=== PATIENT | male | born 1970 | race Caucasian/White ===

== ENCOUNTER 2020-03-20 00:47 | Day surgery (SDC) | payer BC, SELFPAY ==
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
[2020-03-19 09:03] VITALS: BMI 24.4
--- NOTE | ~2020-03-20 | XR_ITS ---
EXAMINATION: XR surgery orthopedic DATE: 03/20/2020 11:37 INDICATION: ORIF right thumb fracture TECHNIQUE: 214 fluoroscopic images of the right thumb were obtained during procedure performed by Dr. Griggs. Radiologist was not present for the imaging or procedure. The amount of fluoroscopy time used during this procedure was 1.3 minutes. COMPARISON: None. FINDINGS: Oblique intra-articular fracture at the base of the right first proximal phalanx with mild displaceme nt on the wafer fab technician images. Subsequent images demonstrate reduction to essentially anatomic alignment and fixation with 2 screws. No significant fracture gap or incongruity at the articular surface. The fir st metacarpophalangeal and interphalangeal joint spaces appear normal. Expected postoperative gas in some of the surrounding soft tissues on the final images. IMPRESSION: 1. Essentially anatomic alignment post open reduction and internal fixation of an intra-articular fra cture at the base of the right first proximal phalanx. Reviewed, dictated and finalized at location A. IMPRESSION: 1. Essentially anatomic alignment post open reduction and internal fixation of an intra-articular fracture at the base of the right first proximal phalanx.
[2020-03-20 07:18] VITALS: BMI 25.1
[2020-03-20 07:30] VITALS: BP 157/98; PULSE 87; RESP 16; TEMP 36.6; O2SAT 98
[2020-03-20] MEDS: LACTATED RINGERS 1,000 ML 30 ML IV CONT ×2 (07:40→11:26)
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
--- NOTE | 2020-03-20 08:30 | SUR.PREOP ---
0825; PT AND SPOUSE NOTIFIED OF START TIME DELAY. POSSIBLY 1 HOUR
--- NOTE | 2020-03-20 08:53 | P.PNAN_ITS ---
Anes - Initial Pre Proc Eval Procedure: Operation Date: 03/20/20 09:00 Proposed Procedures p Open Reduction Internal Fixation Right Thumb Proximal Phalanx - Jorge Luis Griggs MD Date/Time: 03/20/20 08:53 Surgeon: Jorge Luis Griggs MD Pre Op Diagnosis: displaced fx right thumb proximal phalanx Patient Data Age: 49 Gender: M Height: 6 ft 1 in Weight: 86.3 kg Last Vital Signs Temp 97.8 F 03/20/20 07:30 Pulse 87 03/20/20 07:30 Resp 16 03/20/20 07:30 BP 157/98 H 03/20/20 07:30 Pulse Ox 98 03/20/20 07:30 Allergies Allergy/AdvReac Type Severity Reaction Status Date / Time No Known Allergies Allergy Verified 03/20/20 07:19 Home Medications Medication Instructions Recorded Confirmed Type amlodipine 10 mg PO DAILY 03/19/20 03/20/20 History Patient hx anesthesia problems: none Family hx anesthesia problems: none ON LICENSE OF [facility] Past Medical History Medical History (Updated 03/20/20 @ 08:49 by Emory Porras MD) Hypertension Anes - Eval Final PreProcedure Day of Procedure 03/20/20 08:53 Patient weight: normal Heart: regular rate and rhythm Lungs: clear to auscultation; No wheezes Airway: Mallampati scale class II Neurological: alert and oriented Last oral intake: >/= 8 hours ASA classification: II Emergent: no Anesthetic plan: proceed Anesthesia type and monitoring: general LMA and standard monitoring Informed Consent: The patient's anesthetic plan and its attendant risks and benefits were discussed with the patient/family/POA. Questions were solicited and answers provided to the satisfaction of the patient/family/POA.
[2020-03-20] MEDS: IBUPROFEN IV 800 MG/200 ML 800 MG/200 ML BAG 400 MG IVPB (09:14)
--- NOTE | 2020-03-20 09:23 | WPDHPUPDATE1 ---
History and Physical Update Update Date/Time: 03/20/20 09:23 History and Physical has been reviewed, including an updated exam of the patient. There are NO changes in the patient's condition. Risks, benefits, and alternatives have been discussed and questions answered. Patient agrees to proceed with procedure.
--- NOTE | 2020-03-20 09:28 | PM.OP ---
Procedure Note - Brief Procedure Note - Brief Date of procedure: 03/20/20 Pre-op diagnosis: displaced fx right thumb proximal phalanx Post-op diagnosis: same Procedure performed: ORIF fracture of right thumb proximal phalanx. Implants: Modular hand set screws: 1.5 mm x2 Anesthesia: GLMA Surgeon: Jorge Luis Griggs MD Behavioral Health Consultant: Cori Estimated blood loss (mL): 0 Tourniquet time (min): 60 Drains: No Packing: No Complications: No immediate complications Condition: stable Disposition: PACU
[2020-03-20] MEDS: ceFAZolin 2 GM/D5W 50 ML 2 GM/50 ML BAG IVPB (09:39)
[2020-03-20] MEDS: LIDO 1%/EPINEPHRINE 1:100,000 20 ML VIAL 30 ML INFILTRATE (10:15)
[2020-03-20 11:26] VITALS: BP 131/84; PULSE 91; RESP 20; TEMP 36.2; O2SAT 100
--- NOTE | 2020-03-20 11:28 | PM.PROC ---
Procedure Note - Detailed Date of procedure: 03/20/20 Pre-op diagnosis: displaced fx right thumb proximal phalanx Post-op diagnosis: other (Closed displaced fracture of the right thumb proximal phalanx) Procedure performed: Open reduction and internal fixation with two 1.5 mm cortical screws. Description of procedure: The patient's right thumb was marked in the holding area. He was taken to the operating room and placed supine on the operating table. A time-out was held and confirmed. He was given general endotracheal anesthesia. The extremity was prepped and draped in the usual fashion. The site was identified and marked for a dorsal midline incision over the proximal phalanx. This area was infiltrated with 1% lidocaine with epinephrine. A palmar intrathecal block was also placed. This anesthetic was augmented at the end of the case with 0.5% Marcaine without epinephrine. The patient received 2 g of Ancef preop. The tourniquet was inflated to 250 mmHg. The dorsal midline incision was made. The fracture was accessed from the ulnar side of the extensor tendon. The fracture was imaged with the C-arm. Fracture clot was removed the extensor venegas was incised enough that we could see the entire base of the proximal phalanx. A 0.045 inch C wire was placed into the smaller fragment as a joystick. A clamp was applied images made and the C-wire was passed and across the entire base. This provided adequate stabilization. A 1.5 mm by 9 mm lag screw was placed across the fracture in the distal half. Images revealed excellent reduction. The C-wire was removed the distal aspect of that hole was read drilled at a different angle. A 1.5 mm bicortical screw was placed through that. Excellent reduction was visualized on the C-arm image. Length of screws were satisfactory. The wound was irrigated and the extensor venegas repaired with odwilb-ne-oholb 4-0 Vicryl sutures the skin was closed with a running 5 0 nylon. A soft bulky bandage with Coban wrap was applied to the thumb. He is being discharged home with instructions in wound care and follow-up and will have a prescription for hydrocodone . There were no complications. Total tourniquet time was 60 minutes. Surgeon: Jorge Luis Griggs MD
[2020-03-20 11:40] VITALS: BP 130/84; PULSE 72; RESP 18; O2SAT 100
[2020-03-20 11:55] VITALS: BP 128/86; PULSE 79; RESP 12; O2SAT 94
[2020-03-20 12:03] VITALS: BP 135/89; PULSE 86; RESP 12
[2020-03-20 12:30] VITALS: BP 140/78; PULSE 82; RESP 14
== END 2020-03-20 12:33 | disposition home or self-care (01) ==
PROVIDERS: Visit Provider Plastic Surgery
PROC: (CPT 26735; principal; 2020-03-20 09:00)
DX: S62.511A Displaced fracture of proximal phalanx of right thumb, initial encounter for closed fracture (principal); V18.4XXA Pedal cycle driver injured in noncollision transport accident in traffic accident, initial encounter; I10 Essential (primary) hypertension
CPT/HCPCS: 26735; A9270; C1713; J0690; J1100; J1741; J2250; J2405; J2704; J3010; J7120

== ENCOUNTER 2025-05-08 13:18 | Emergency (ER) | payer SELFPAY ==
[2025-05-08 13:24] VITALS: BP 163/105; PULSE 99; RESP 18; TEMP 36.6; O2SAT 100
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
== END 2025-05-08 14:17 | disposition home or self-care (01) ==
PROVIDERS: Emergency Provider Nurse Practitioner
DX: S00.83XA Contusion of other part of head, initial encounter (principal); S51.801A Unspecified open wound of right forearm, initial encounter; S60.512A Abrasion of left hand, initial encounter; S60.511A Abrasion of right hand, initial encounter; V18.4XXA Pedal cycle driver injured in noncollision transport accident in traffic accident, initial encounter; Y93.55 Activity, bike riding; I10 Essential (primary) hypertension
CPT/HCPCS: 99212; G0463

== ENCOUNTER 2025-05-26 17:09 | Emergency (ER) | payer BC, SELFPAY ==
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
[2025-05-26 17:22] VITALS: BP 171/102; PULSE 100; RESP 18; TEMP 37.2; O2SAT 100
== END 2025-05-26 17:30 | disposition home or self-care (01) ==
PROVIDERS: Emergency Provider Nurse Practitioner
DX: H66.93 Otitis media, unspecified, bilateral (principal); I10 Essential (primary) hypertension
CPT/HCPCS: 99213; G0463

== ENCOUNTER 2025-07-10 12:30 | Outpatient (CLI) | payer BC, SELFPAY ==
--- OUTSIDE RECORDS SUMMARY | 2025-06-10 16:31 | XMS_ITS | Encounter Summary ---
Author Organization [facility] Health Address [address] [place] [address] Care Team Providers Care Support Manager Name Role Phone Gadiel Torres MD Primary Care Provider [phone] Encounter Details Date Type Department Care Team (Late st Contact Info) Description 05/14/2022 Ophth Exam [facility] [address] [place] [address] Mark Ramos , DO [address] [place] [address] Social History Tobacco Use Types Packs/Day Years Used Date Smoking Tobacco: Never Smokeless Tobacco: Never Alcohol Use Standard Drinks/Week Comments Yes 0 (1 standard drink = 0.6 oz pur e alcohol) 3 drinks per day Sex and Gender Information Value Date Recorded Sex Assigned at Not on file Legal Sex Male 11:02 AM CDT Gender Identity Not on file Sexual Orientation Not on file documented as of this encounter Plan of Treatment Not on file documented as of this encounter Visit Diagnoses Not on filedocumented in this encounter Care Teams Support Manager Relationship Specialty Start Date End Date Gadiel Torres MD PCP - General Internal Medicine 05/14/22 documented as of this encounter
--- OUTSIDE RECORDS SUMMARY | 2025-06-10 16:31 | XMS_ITS | Clinical Summary ---
Author Organization [facility] [employer] Address [address] [facility] [place] [address] Care Team Providers Care Hose Inspector And Patcher Name Role Phone Gadiel Torres MD Primary Care Provider [phone] Source Comments [facility] [employer],non-owned Affiliates and Associated Physician Practices is amultiple site organization consisting of ambulatory clinics and hospital sitesin [place], [place], [place] and [place]. This disclosure is being madepursuant to the Care Everywhere program and may not contain all information available regarding this patient. Last updated 18.[facility] [employer] Allergies No known active allergies Medications * Be aware that medications may not be up to date on this document. Alwaysverify current medications with the patient. bacitracin ointment Apply to affected area 3 times daily 30 g 05/14/2022 Active Immunizations Immunization Administration Dates Next Due TDAP (7yrs+) 05/14/2022 Social History Tobacco Use Types Packs/Day Years [...] on file Sexual Orientation Not on file Last Filed Vital Signs Vital Sign Reading Time Taken Comments Blood Pressure 168/114 05/14/2022 6:24 PM CDT Pulse 103 05/14/2022 6:04 PM CDT Temperature 37.6 C (99.7 F) 05/14/2022 11:14 AM CDT Respiratory Rate 29 05/14/2022 6:04 PM CDT Oxygen Saturation 97% 05/14/2022 6:04 PM CDT Inhaled Oxygen Concentration - - Weight 86.2 kg (190 lb) 05/14/2022 11:13 AM CDT Height 188 cm (6' 2) 05/14/2022 11:13 AM CDT Body Mass Index 24.39 05/14/2022 11:13 AM CDT Plan of Treatment Health Maintenance Due Date Last Done Comments COLOGUARD (AGES 45-75) - COL ON CA SCREENING 1968 COLON MONITORING 1968 COLONOSCOPY - COLON CA SCREENING 1968 CT COLONOGRAPHY - COLON CA SCREENING 1968 Colorectal Cancer Screening 1968 FIT - COLON CA SCREENING 1968 FLEX SIG - COLON CA SCREENING 1968 HIV SCREENING 1983 HEPATITIS C SCREENING 06/18/1986 HEPATITIS B VACCINE (1 of 3 - 19+ 3-dose series) 1987 PNEUMOCOCCAL VACCINE 50+ (1 of 1 - PCV) 2018 ZOSTER VACCINE (1 of 2) 2018 COVID-19 VACCINE (3 - 2023-2 5 season) 2024 02/26/2021, 01/29/2021 DEPRESSION SCREENING 11/27/2024 INFLUENZA VACCINE (#1) 2025 01/19/2021 LIPID TESTING 04/11/2027 04/11/2022 DTAP/TDAP/TD VACCINES (2 - T d or Tdap) 05/14/2032 05/14/2022 HIB VACCINE Aged Out No longer eligi ble based on patient's age to complete this topic HPV VACCINE Aged Out No longer eligi ble based on patient's age to complete this topic MENINGOCOCCAL (Group B) VACCINE SHARED DECISION-MAKING Aged Out No longer eligible based on patient's age to complete this topic MENINGOCOCCAL GROUPS A/C/Y/W VACCINE Aged Out No longer eligible b ased on patient's age to complete this topic Insurance PRASHANTH ANTHEM Care Teams Hose Inspector And Patcher Relationship Specialty Start Date End Date Gadiel Torres MD PCP - General Internal Medicine 05/14/22
--- NOTE | ~2025-07-10 | CT_ITS ---
Non-contrast Head CT History: Concussion Technique: Axial non-contrast imaging of the brain was performed. Dose reduction technique was used on this scan by utilizing automated exposure control and iterative reconstruction technique. The dose -length product (DLP) was 605.33 mGy-cm. Findings: There is no evidence of intracranial hemorrhage, mass lesion, or acute infarct. Brain par enchyma appears normal. The ventricles and subarachnoid spaces are normal in size. The calvarium ap pears normal. The visualized paranasal sinuses and mastoid air cells are clear. Impression: No significant abnormality seen. Reviewed, dictated and finalized at location . Impression: No significant abnormality seen.
--- OUTSIDE RECORDS SUMMARY | 2025-07-10 12:32 | XMS_ITS | Clinical Summary ---
Author Organization [facility] [employer] Address [address] [facility] [place] [address] Care Team Providers Care School Library Media Specialist Name Role Phone Gadiel Torres MD Primary Care Provider [phone] Source Comments [facility] [employer],non-owned Affiliates and Associated Physician Practices is amultiple site organization consisting of ambulatory clinics and hospital sitesin [place], [place], [place] and [place]. This disclosure is being madepursuant to the Care Everywhere program and may not contain all information available regarding this patient. Last updated 18.[facility] [employer] Allergies No known active allergies Medications * [...] this topic Insurance PRASHANTH ANTHEM Care Teams School Library Media Specialist Relationship Specialty Start Date End Date Gadiel Torres MD PCP - General Internal Medicine 05/14/22
--- OUTSIDE RECORDS SUMMARY | 2025-07-10 12:32 | XMS_ITS | Encounter Summary ---
Author Organization [facility] Address [address] [facility] [place] [address] Care Team Providers Care Road Equipment Operator Name Role Phone Gadiel Torres MD Primary Care Provider [phone] Encounter Details Date Type Department Care Team (Late st Contact Info) Description 05/14/2022 Ophth Exam [facility] [address] [place] [address] Mark Ramos , DO [address] [place] [address] Social History Tobacco Use Types Packs/Day Years [...] on filedocumented in this encounter Care Teams Road Equipment Operator Relationship Specialty Start Date End Date Gadiel Torres MD PCP - General Internal Medicine 05/14/22 documented as of this encounter
== END 2025-07-10 12:31 | disposition home or self-care (01) ==
PROVIDERS: PCP Family Medicine
DX: S06.0X0D Concussion without loss of consciousness, subsequent encounter (principal); X58.XXXD Exposure to other specified factors, subsequent encounter
CPT/HCPCS: 70450

== ENCOUNTER 2025-09-02 16:16 | Emergency (ER) | payer BC, SELFPAY ==
--- OUTSIDE RECORDS SUMMARY | 2025-09-01 10:45 | XMS_ITS ---
Author Organization [facility] [employer] Address [address] [facility] [address] [place] [address] Care Team Providers Care Education Trainer Name Role Phone Kelly Henriquez Unavailable [phone] Mark Murray Unavailable [phone] REASON FOR VISIT 2 week f/u Social History Sex Assigned At : Social History Observation Description Sex Assigned At Male Encounters Encounter Location Date Provider Diagnosis [facility] [employer] [facility], [place] [address] [facility] [address] [place] [address] 09/01/2025 Mark Murray Plan Of Treatment No Information Progress Notes * Sherman SALDIVARDOB:1970 (55 yo M)Acc No.[id number]:09/01/2025 Patient: Sherman Yip Provider: CORETTA Black :1970 A ge:55 Y S ex:Male Date:09/01/2025 Phone: Address:[address] [place] [id number] Subjective: * Chief Complaints: * 2 week f/u * HPI: T ransition of Care: 08/18/2025 BDI: 25 NANCY-7: 10, PHQ-9: 15 depressed since of his father in april. PCP placed on sertraline 50 mg in May increased to 100 mg last month. - increase sertraline to 150 mg daily - start Buproprion 150 mg daily - discussed lithium - continue therapy. Billing Information: * Procedure Codes: * Electronic signature of CORETTA Ramirez on 09/02/2025 at 04:52 PM CDT Sign off status: Pending * Provider: CORETTA Black Date: Generated for Crow hayes/Faxing/eTransmitting on: 1 04:52 PM CDT
[2025-09-02] VITALS (7 sets, daily range): BP systolic 130–144; BP diastolic 82–91; PULSE 65–70; RESP 14–27; TEMP 36.8; O2SAT 98–100
--- NOTE | ~2025-09-02 | XR_ITS ---
EXAMINATION: XR chest 2V, 09/02/2025 16:45 CDT HISTORY: CP/SOB/PALPITATIONS COMPARISON: No comparisons available. Technique: 2 views obtained. Findings: The lungs are clear, no effusion. No pneumothorax. Heart is normal size. Mediastinal and hilar contours are within normal limits. Bony thorax no acute abnormality. Impression: No acute cardiopulmonary abnormality. Reviewed, dictated and finalized at location P. Impression: No acute cardiopulmonary abnormality.
--- NOTE | 2025-09-02 16:27 | ECG_ITS ---
Test Date: 2025-09-02 16:26:13 Measurements Intervals [place] Rate: 63 P: 67 HI: 179 QRS: 59 QRSD: 89 T: 22 QT: 395 QTc: 407 Interpretive Statements SINUS RHYTHM LEFT ATRIAL ENLARGEMENT INCOMPLETE RIGHT BUNDLE BRANCH BLOCK MINIMAL Q WAVES- INFERIOR LEADS BORDERLINE ECG No previous ECG available for comparison Electronically Signed On 09-02-2025 18:55:01 CDT by Reinaldo Martinez D.O.
--- OUTSIDE RECORDS SUMMARY | 2025-09-02 16:41 | XMS_ITS | Encounter Summary ---
Author Organization [facility] Address [address] [place] [address] Care Team Providers Care Door Builder Name Role Phone Gabriel Mak MD Primary Care Provider Reason for Visit * Reason Onset Date Comments Shortness of Breath 09/02/2025 Chest Pain 09/02/2025 Encounter Details Date Type Department Care Team (Late st Contact Info) Description 09/02/2025 Nurse Triage [facility] Primary Care at [address] [address] Gabriel Mak MD [address] [place] [address] [address] [place] [address] Social History Tobacco Use Types Packs/Day Years Used Date Smoking Tobacco: Never Smokeless Tobacco: Never PHQ-2 Answer Date Recorded PHQ-2 Total Score (If total score is 3 or more points, staff should administer the PHQ-9) 6 08/21/2025 PHQ-9 Answer Date Recorded PHQ-9 Total Score 19 08/21/2025 Sex and Gender Information Value Date Recorded Sex Assigned at Not on file Legal Sex Male 10:47 AM CDT Gender Identity Not on file Sexual Orientation Not on file documented as of this encounter Miscellaneous Notes * Telephone Encounter - Mariam Dobbins RN - 09/02/2025 2:17 PM CDT Reason for Conversation Shortness of Breath and Chest Pain Background Grgeory Yariel called about sob and insomnia in the last 2 nights. Pt is sob when lying down, causinghim to stay up. Barely slept last night. Feels like his heart rate is up, feels like heart is pounding faster. Sometimes this wakes him up. Has had a couple of episodes of chest pain that also started about 2 days ago. Had an episode this afternoon which last about 30 minutes. Chest pain was mid chest at a level of 3-4/10. Pt was sob with the pain. It did not radiate No current chest pain. Pt does not want to go to the ED. Provider contacted via secure chat for ED disposition consult. Recommendation from provider:No response/sent to ED. Advised evaluation at the ED. Pt states he is unsure he w ill go, pt states he called to just discuss recent med changes and current symptoms. Discussed thatred flags like chest pain and sob need to be evaluated and discussed dangers/potentially life threatening issues with delaying care. Pt states he will discuss this with his spouse. Tasking message tothe office. Advised pt to call back if symptoms worsen or with any other concerns/questions. Pt verbalized understanding. Disposition Go to ED/UCC Now (or to Office With PCP Approval) Reason for Disposition Chest pain lasting longer than 5 minutes and occurred in last 3 days (72 hours) (Exception: Feels exactly the same as previously diagnosed heartburn and has accompanying sour taste in mouth.) Protocols Used Chest Mjya-Dlfke-CO documented in this encounter Plan of Treatment Not on file documented as of this encounter Visit Diagnoses Not on filedocumented in this encounter Care Teams Door Builder Relationship Specialty Start Date End Date Gabriel Mak MD [address] [place] [address] [address] [place] [address] PCP - General Family Medicine 08/21/25 documented as of this encounter
--- OUTSIDE RECORDS SUMMARY | 2025-09-02 16:41 | XMS_ITS | Clinical Summary ---
Author Organization [facility] Address [address] [place] [address] Care Team Providers Care Urban Forester Name Role Phone Gadiel Torres MD Primary Care Provider [phone] Source Comments [facility],non-owned Affiliates and Associated Physician Practices is amultiple site organization consisting of ambulatory clinics and hospital sitesin [place], [place], [place] and [place]. This disclosure is being madepursuant to the Care Everywhere program and may not contain all information available regarding this patient. Last updated 18.[facility] Allergies No known active allergies Medications * Be aware that medications may not be up to date on this document. Alwaysverify current medications with the patient. bacitracin ointment Apply to affected area 3 times daily 30 g 05/14/2022 Active Encounters Date Type Department Care Team Description 07/29/2025 4:01 PM CDT - 07/29/2025 11:59 PM CDT Hospital Encounter [facility] Imaging Services - [address] [address] Discharge Disposition: Home or Self Care from Last 3 Months Immunizations Immunization Administration Dates Next Due TDAP [...] FLEX SIG - COLON CA SCREENING 1968 LIPID TESTING 1968 HIV SCREENING 1983 HEPATITIS C SCREENING 06/18/1986 HEPATITIS B VACCINE (1 of 3 - 19+ 3-dose series) 1987 PNEUMOCOCCAL VACCINE 50+ (1 of 1 - PCV) 2018 ZOSTER VACCINE (1 of 2) 2018 DEPRESSION SCREENING 11/27/2024 COVID-19 VACCINE (1 - 2023-2 5 season) 2025 INFLUENZA VACCINE (#1) 2025 DTAP/TDAP/TD VACCINES (2 - T d or Tdap) 05/14/2032 05/14/2022 HIB VACCINE Aged Out No longer eligi ble based on patient's age to complete this topic HPV VACCINE Aged Out No longer eligi ble based on patient's age to complete this topic MENINGOCOCCAL (Group B) VACC INE SHARED DECISION-MAKING Aged Out No longer eligibl e based on patient's age to complete this topic MENINGOCOCCAL GROUPS A/C/Y/W VACCINE Aged Out No longer eligible b ased on patient's age to complete this topic Procedures Procedure Name Priority Date/Time Associated Diagnosis Comments MRI BRAIN WO CONTRAST Routine 07/29/2025 5:38 PM CDT Confusion from Last 3 Months Results * MRI BRAIN NON CONTRAST (07/29/2025 5:38 PM CDT) Anatomical Region Laterality Modality Head Magnetic Resonan ce 07/29/2025 6:15 PM CDT Impressions 07/30/2025 3:54 PM CDT IMPRESSION: No acute infarct. Nonspecific minimal periventricular white matter hyperintensity, could be related to chronic small vessel ischemic disease. Edited by Cathy Steve on 07/30/2025 8:29 AM > Interpreting Provider: Spring Schulte MD on 07/30/2025 3:54 PM Narrative 07/30/2025 3:54 PM CDT PROCEDURE: MRI BRAIN WO CONTRAST, DATE/TIME OF EXAM: 07/29/2025 5:38 PM, LOCATION [facility] INDICATION: R41.0: Confusion. COMPARISON: None. TECHNIQUE: MRI of the brain was performed without contrast. FINDINGS: Minimal nonspecific periventricular white matter hyperintensity. Brain parenchymal signal intensity is otherwise normal. Sheth-white matter differentiation is normal. No diffusion restriction to suggest acute infarct is seen. No evidence of hemorrhage is seen on gradient sequence. The ventricular system is normal in size and configuration. Midline structures are not displaced. No mass or mass effect is seen. Vascular flow-voids are normal. The paranasal sinuses and mastoid air cells are aerated. The calvarium has normal marrow signal intensity. Procedure Note Spring Schulte MD - 07/30/2025 PROCEDURE: MRI BRAIN WO CONTRAST, DATE/TIME OF EXAM: 07/29/2025 5:38 PM, LOCATION [facility] INDICATION: R41.0: Confusion. COMPARISON: None. TECHNIQUE: MRI of the brain was performed without contrast. FINDINGS: Minimal nonspecific periventricular white matter hyperintensity. Brain parenchymal signal intensity is otherwise normal. Sheth-white matter differentiation is normal. No diffusion restriction to suggest acute infarct is seen. No evidence of hemorrhage is seen on gradient sequence. The ventricular system is normal in size and configuration. Midline structures are not displaced. No mass or mass effect is seen. Vascular flow-voids are normal. The paranasal sinuses and mastoid aircells are aerated. The calvarium has normal marrow signal intensity. IMPRESSION: No acute infarct. Nonspecific minimal periventricular white matter hyperintensity, could be related to chronic small vessel ischemicdisease. Edited by Cathy Steve on 07/30/2025 8:29 AM > Interpreting Provider: Spring Schulte MD on 07/30/2025 3:54 PM Jerilyn Camacho MD MR ORDERABLES Final Result from Last 3 Months Insurance ANTHEM ANTHEM ANTHEM Care Teams Urban Forester Relationship Specialty Start Date End Date Rice, Gadiel H, MD PCP - General Internal Medicine 05/14/22
--- OUTSIDE RECORDS SUMMARY | 2025-09-02 16:41 | XMS_ITS | Encounter Summary ---
Author Organization [facility] Address [address] [place] [address] Care Team Providers Care Web Graphic Designer Name Role Phone Gabriel Mak MD Primary Care Provider Reason for Visit * Reason Onset Date Comments Shortness of Breath 09/02/2025 Medication Problem 09/02/2025 Encounter Details Date Type Department Care Team (Late st Contact Info) Description 09/02/2025 Nurse Triage [facility] Primary Care at [address] [address] Rowena Conteh, RN Social History Tobacco Use Types Packs/Day Years [...] encounter Miscellaneous Notes * Telephone Encounter - Rowena Conteh RN - 09/02/2025 2:11 PM CDT Access Center Nurse Triage: Reason for Conversation Shortness of Breath and Medication Problem Background CRISTI 08/21/25 cc: shortness of breath and insomnia From the INTERNAL RECRUITER, Patient started Valsartan 2 days ago and states last night while laying down he noticed he was becoming more SOB which caused him to stay up. Today patient says he feels a little better when he is up and walking around but once he sits or lays down he becomes short of breath. I called the patient twice. Each time I left a voicemail message requesting a return call. Will forward to Gabriel Mak MD clinical team to follow up with the patient as these are red flagsymptoms. Disposition No Contact Calls Reason for Disposition Second attempt to contact caller AND no contact made. Phone number verified. Protocols Used No Contact or Duplicate Contact Dnhy-Qvluz-DU * Telephone Encounter - Rowena Conteh RN - 09/02/2025 2:01 PM CDT Regarding: SOB/Insomnia ----- Message from Seven Chen sent at 09/02/2025 1:59 PM CDT ----- Symptom Based Call Chief Complaint(s): SOB/Insomnia Duration: Started Last Night (09/01/25) What type of symptom(s) is the patient experiencing? Red Flag. Is the patient concerned they are experiencing a medical emergency requiring an ambulance? No Additional Comments: Patient started Valsartan 2 days ago and states last night while laying down he noticed he was becoming more SOB which caused him to stay up. Today patient says he feels a littlebetter when he is up and walking around but once he sits or lays down he becomes short of breath. Patient denies additional symptoms at time of the call and is seeking clinical advice. Does message need to be routed? Yes-Action Needed documented in this encounter Plan of Treatment Not on file documented as of this encounter Visit Diagnoses Not on filedocumented in this encounter Care Teams Web Graphic Designer Relationship Specialty Start Date End Date Gabriel Mak MD [address] [facility] [address] [place] [address] PCP - General Family Medicine 08/21/25 documented as of this encounter
--- OUTSIDE RECORDS SUMMARY | 2025-09-02 16:41 | XMS_ITS | Encounter Summary ---
Author Organization [facility] Address [address] [place] [address] Care Team Providers Care Extractions Technician Name Role Phone Gabriel Mak MD Primary Care Provider Reason for Visit * Reason Onset Date Comments Med Refill 08/25/2025 Encounter Details Date Type Department Care Team (Late st Contact Info) Description 08/25/2025 Telephone [facility] Primary Care at [address] [address] Gabriel Mak MD [address] [place] [address] [address] [place] [address] Med Refill Social History Tobacco Use Types Packs/Day Years [...] on file documented as of this encounter Ordered Prescriptions Prescription Sig Dispense Quantity Refills Last Filled Start Date End Date valsartan (DIOVAN) 160 mg tabletIndications:H ypertension, essential Take 1 tablet (160 mg total) by mouth daily 90 tablet 08/29/2025 documented in this encounter Miscellaneous Notes * Telephone Encounter - Maki Oliveira MA - 09/02/2025 10:[address] Mak ok to increase metoprolol back to 50 mg. * Addendum Note - Maki Oliveira MA - 08/29/2025 2:40 PM CDTAddended by: MAKI OLIVEIRA on: 08/29/2025 02:40 PM Modules accepted: Orders * Telephone Encounter - Maki Oliveira MA - 08/29/2025 2:39 PM CDT Talked with pt notified him of recommended medication change. Pt stated understanding. He said his pulse has been in the 90s and would like to know if he can go back to the increased dose on the metoprolol 50 mg. He feels better when his pulse is in the 70s and it was on the 50 mg dose. * Telephone Encounter - Maki Oliveira MA - 08/29/2025 2:[address] Mak send in valsartan 160 mg and see if pt has same reaction. Medication sent. * Telephone Encounter - Evelyn Kuhn - 08/29/2025 2:14 PM CDT Call Back Caller???s Concern: Patient checking status, I let them know that the message was sent to Dr Mak late yesterday and they would take care of as soon as they can. Does message need to be routed? No * Telephone Encounter - Maki Oliveira MA - 08/28/2025 2:43 PM CDT Talked with pt. He took the amlodipine-valsartan and felt off, jittery, elevated heart rate. He would like to see if he can go back to just the beta mercedes or something that works similar. He also has tremors which the beta mercedes helps. * Telephone Encounter - Maria Luz Whitt - 08/28/2025 10:45 AM CDT Call Back Caller???s Concern: The patient is calling back with additional questions for Maki Attempted to warm transferred to the backline to speak to Maki but no answer. Sending High Priority Does message need to be routed? Yes-Action Needed * Telephone Encounter - Erma Hodges - 08/27/2025 3:52 PM CDT Call Back Caller???s Concern: patient returned call to center with follow up questions, watch commander warm transfer to the backline Does message need to be routed? No * Telephone Encounter - Maki Oliveira MA - 08/27/2025 2:46 PM CDT Talked with pt and notified him of recommendation. He said he has tried the amlodipine in the past and was seen in the ED for high heart rate. They never confirmed it was the amlodipine. Pt said he is going to try it at the whole tab and let us know if he has any issues * Telephone Encounter - Evelyn Levy - 08/27/2025 2:42 PM CDT Call Back Caller???s Concern: Warm transferred patient to practice regarding call back for amlodipine. Does message need to be routed? No * Telephone Encounter - Maki Oliveira MA - 08/27/2025 2:36 PM CDT Is pt having rapid heart rate on medication or has he not started medication. If pt is taking and having rapid heart rate Dr. Mak recommends trying half dose of amlodipine-valsartin to see if sx improve. LMOM For pt to call office. * Telephone Encounter - Jalyn Alberto - 08/25/2025 1:46 PM CDT Medication Question/Clarification Medication Name(s)/Dose: metoprolol XL (TOPROL-XL) 25 mg extended release tablet and amlodipine-valsartan (EXFORGE) 5-160 mg per tablet What is the question or clarification needed? Patient is calling stating he don't want to take the amlodipine-valsartan (EXFORGE) 5-160 mg per tablet because of the rapid heart beat. Patient states he want to continue taking the metoprolol XL (TOPROL-XL) 25 mg extended release tablet. If needed, Pharmacy(s) medication(s) should be sent to: Pharmacy on file Additional Comments: None Does message need to be routed? Yes-Action Needed documented in this encounter Plan of Treatment Not on file documented as of this encounter Visit Diagnoses Diagnosis Hypertension, essential- Primary Unspecified essential hypertension documented in this encounter Discontinued Medications Medication Sig Discontinue Reason Start Date End Da te amlodipine-valsartan (EXFORGE) 5-160 mg per tabletIndications:Hypert ension, essential Take 1 tablet by mouth daily Alternate therapy 08/21/2025 08/29/2025 documented as of this encounter Care Teams Extractions Technician Relationship Specialty Start Date End Date Gabriel Mak MD [address] [address] PCP - General Family Medicine 9/25/25 documented as of this encounter
--- OUTSIDE RECORDS SUMMARY | 2025-09-02 16:41 | XMS_ITS | Clinical Summary ---
Author Organization [facility] [place] Address [address] [place] [address] [address] [place] [address] Care Team Providers Care Tire Balancer Name Role Phone Gabriel Mak MD Primary Care Provider Allergies No known active allergies Medications sertraline (ZOLOFT) 100 mg tablet Take 1 tablet (100 mg total) by mouth daily 07/11/20 25 Active sertraline (ZOLOFT) 50 mg tablet Take 1 tablet (50 mg total) by mouth daily 06/26/20 25 Active buPROPion XL (WELLBUTRIN XL) 150 mg 24 hr tablet Take 1 tablet (150 mg total) by mouth daily Active metoprolol XL (TOPROL-XL) 25 mg extended release tabletIndicati ons:Hypertensi on, essential Take 1 tablet (25 mg total) by mouth daily 90 tablet 1 08/21/20 25 026 Active valsartan (DIOVAN) 160 mg tabletIndicati ons:Hypertensi on, essential Take 1 tablet (160 mg total) by mouth daily 90 tablet 08/29/20 25 Active metoprolol XL (TOPROL-XL) 50 mg extended release tablet Take 1 tablet (50 mg total) by mouth daily 06/04/20 25 025 Discontinued traZODone (DESYREL) 50 mg tablet TAKE 1 TABLET BY MOUTH EVERY DAY AT BEDTIME AFTER MEAL 06/04/20 25 025 Discontinued( erapy completed) mupirocin (BACTROBAN) 2 % ointmentIndica tions:Local skin infection Apply topically 3 (three) times a day 22 g 09/18 025 Discontinued(Th erapy completed) doxycycline (VIBRAMYCIN) 100 mg capsuleIndicat ions:Local skin infection Take 1 tablet/capsul e (100 mg total) by mouth 2 (two) times a day for 10 days 20 tablet/caps ule 08/14/20 025 Discontinued(Th erapy completed) amlodipine-christophe sartan (EXFORGE) 5-160 mg per tabletIndicati ons:Hypertensi on, essential Take 1 tablet by mouth daily 90 tablet 1 08/21/20 025 Discontinued(Al ternate therapy) Active Problems Problem Noted Date Diagnosed Date Chronic constipation 08/21/2025 Assessment & Plan (08/21/2025 11:55 AM CDT): Chronic constipation for many years with ineffective relief from stool softeners. Reports irregular bowel movements. Discuss more on future visit Nocturia 08/21/2025 Assessment & Plan (08/21/2025 11:55 AM CDT): Nocturia with urination 4-5 times per night. Reports frequent urination. Check PSA, order placed Discuss more on future visit Unintentional weight loss of more than 10% body weight within 6 months 08/21/2025 Assessment & Plan (08/21/2025 11:55 AM CDT): Unintentional weight loss Unintentional weight loss of approximately 23 pounds over three months, with no change in appetite, nausea, or vomiting. Reports constipation and frequent urination. Recent colonoscopy in 2019 showed no polyps. 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 Improvement expected with better control of anxiety and depression. - Address underlying anxiety and depression to reduce skin picking Hypertension, essential 08/21/2025 Assessment & Plan (08/21/2025 11:55 AM CDT): BP Readings from Last 3 Encounters: 08/21/25 152/94 08/14/25 (!) 174/100 Essential hypertension, uncontrolled Uncontrolled essential hypertension with recent readings of 174/100 and 152/94. Current metoprolol 50 mg daily is ineffective. Beta blockers may exacerbate depression and are not ideal for blood pressure management. - Reduce metoprolol XL to 25 mg daily - Start a new antihypertensive medication - Amlodipine-Valsartan 5-160 mg daily - Send prescriptions to [facility] and [facility] - follow up in 1 months, monitor BP at home Orders: amlodipine-valsartan (EXFORGE) 5-160 mg per tablet; Take 1 tablet by mouth daily metoprolol XL (TOPROL-XL) 25 mg extended release tablet; Take 1 tablet (25 mg total) by mouth daily Comprehensive metabolic panel; Future Lipid panel; Future CBC without differential; Future Moderate episode of recurrent major depressive d isorder 08/21/2025 Assessment & Plan (08/21/2025 11:55 AM CDT): Major depressive disorder and anxiety disorder Exacerbation of major depressive disorder and anxiety disorder. Depression is worsening, and anxiety is coexisting. Current sertraline regimen is ineffective. Wellbutrin was recently added by a psychiatrist. No suicidal ideation reported. - Continue sertraline and Wellbutrin as prescribed by psychiatrist - Follow up with psychiatrist in two weeks Orders: Comprehensive metabolic panel; Future Thyroid Function [place]; Future Testosterone, Total and Free, Serum; Future NANCY (generalized anxiety disorder) 08/21/2025 Assessment & Plan (08/21/2025 11:55 AM CDT): Major depressive disorder and anxiety disorder Exacerbation of major depressive disorder and anxiety disorder. Depression is worsening, and anxiety is coexisting. Current sertraline regimen is ineffective. Wellbutrin was recently added by a psychiatrist. No suicidal ideation reported. - Continue sertraline and Wellbutrin as prescribed by psychiatrist - Follow up with psychiatrist in two weeks Orders: Comprehensive metabolic panel; Future Thyroid Function [place]; Future Encounters Date Type Department Care Team Description 09/02/2025 Nurse Triage [facility] Primary Care at [address] [phone] Gabriel Mak MD 09/02/2025 Nurse Triage [facility] Primary Care at [address] [phone] Rowena Conteh RN 08/25/2025 Telephone [facility] Primary Care at [address] [phone] Gabriel Mak MD Med Refill 08/21/2025 9:00 AM CDT Office Visit [facility] Primary Care at [address] [phone] Gabriel Mak MD Preventative health care (Primary Dx); Hypertension, essential; NANCY (generalized anxiety disorder); Moderate episode of recurrent major depressive disorder (HCC); Skin excoriation; Screening for diabetes mellitus; Screening for lipid disorders; Unintentional weight loss of more than 10% body weight within 6 months; Chronic constipation; Nocturia; Pain, dental; Need for hepatitis B screening test; Prostate cancer screening; Encounter for hepatitis C screening test for low risk patient 08/14/2025 2:15 PM CDT Office Visit [facility] at [address] [phone] Malka Min NP Local skin infection (Primary Dx); Elevated blood pressure reading from Last 3 Months Immunizations Immunization Administration Dates Next Due Influenza, Unspecified 08/21/2025(Deferr ed: Patient Refused),11/27/2024(Deferred: Patient Refused) Tdap 05/14/2022 Surgical History Surgery Date Site/Laterality Comments THUMB SURGERY Right Family History Medical History Relation Name Comments Anxiety disorder Father Depression Father Heart failure Father No Known Problems Mother Multiple sclerosis Sister Relation Name Status Comments Father Mother Alive Sister Alive Social History Tobacco Use Types Packs/Day Years Used Date Smoking Tobacco: Never Smokeless Tobacco: Never Tobacco Cessation:Counseling Given: Not Answered PHQ-2 Answer Date Recorded PHQ-2 Total Score (If total score is 3 or more points, staff should administer the PHQ-9) 6 08/21/2025 PHQ-9 Answer Date Recorded PHQ-9 Total Score 19 08/21/2025 Sex and Gender Information Value Date Recorded Sex Assigned at Not on file Legal Sex Male 10:47 AM CDT Gender Identity Not on file Sexual Orientation Not on file Obstetrics History Last Filed Vital Signs Vital Sign Reading Time Taken Comments Blood Pressure 152/94 08/21/2025 9:21 AM CDT Pulse 78 08/21/2025 9:21 AM CDT Temperature 36.8 C (98.2 F) 08/21/2025 9:21 AM CDT Respiratory Rate 18 08/14/2025 1:53 PM CDT Oxygen Saturation 98% 08/21/2025 9:21 AM CDT Inhaled Oxygen Concentration - - Weight 74 kg (163 lb 3.2 oz) 08/21/2025 9:21 AM CDT Height 182.9 cm (6') 08/21/2025 9:21 AM CDT Body Mass Index 22.13 08/21/2025 9:21 AM CDT Plan of Treatment Health Maintenance Due Date Last Done Comments Hepatitis C Screening 1968 Prostate Cancer Screening-PSA 1968 Hepatitis B Screening 1986 Zoster Vaccine (1 of 2) 2018 Influenza Vaccine (#1) 2025 Colon Cancer Screening-Colonoscopy 10/21/2025 Postponed from (Patient declined, but will receive in the future) Depression Screening 08/21/2026 08/21/2025, 08/21/2025 Regular Well Visit/Exam 18-64 08/21/2026 08/21/2025 DTaP/Tdap/Td Vaccine (2 - Td or Tdap) 05/14/2032 05/14/2022 Pneumococcal vaccine <65 Aged Out No longer eligible based on patient's age to complete this topic Insurance Outsell OOS Member Subscriber Plan / Payer (Ef fective 2024-Present) Name:Gregory Saldivar Relation to Subscriber:Self Name:Gregory Saldivar Payer ID:[id number] (NAIC) Type:[employer] Address: [facility] [id number] [id number] Care Teams Tire Balancer Relationship Specialty Start Date End Date Gabriel Mak MD [address] [facility] [address] [place], [place] [id number] PCP - General Family Medicine 08/21/25
--- OUTSIDE RECORDS SUMMARY | 2025-09-02 16:41 | XMS_ITS | Encounter Summary ---
Author Organization [facility] Address [address] [place] [address] Care Team Providers Care High School Counselor Name Role Phone Gadiel Torres MD Primary Care Provider [phone] Encounter Details Date Type Department Care Team (Late st Contact Info) Description 05/14/2022 Ophth Exam [facility] [address] [place] [phone] Mark Ramos , DO [address] [place] [address] Social History Tobacco Use Types Packs/Day Years [...] on filedocumented in this encounter Care Teams High School Counselor Relationship Specialty Start Date End Date Gadiel Torres MD PCP - General Internal Medicine 05/14/22 documented as of this encounter
--- OUTSIDE RECORDS SUMMARY | 2025-09-02 16:53 | XMS_ITS | Patient Health Record ---
Author Organization [facility] [employer] Address [address] [facility] [address] [place] [address] Care Team Providers Care Packer Name Role Phone Kelly Henriquez Unavailable [phone] Mark Murray Unavailable [phone] Results Component Value Reference Range Notes UDT Reviewed date:08/18/2025 05:05:46 PM Interpretation: Performing Lab: Notes/Report: THC neg 0 - 50 ng/ml Cocaine neg 0 - 300 ng/ml Amphetamine neg 0 - 1000 ng/ml Buprenorphine (BUP) neg 0 - 10 ng/ml Secobarbital (Bar) neg 0 - 300 ng/ml Oxazepam (BZO) neg 0 - 300 ng/ml 8-[id number]-3,8-pierlssn-6,3-diphenylpyrrolidine (DORINDA P) neg 0 - 300 ng/ml Methamphetamine (MET) neg 0 - 1000 ng/ml Methylenedioxymethamphetamine (MDMA) neg 0 - 500 ng/ml Morphine (MOP 300/[id number]) neg 0 - 300 ng/ml Methadone (MTD) neg 0 - 300 ng/ml Phencyclidine (PCP) neg 0 - 25 ng/ml Nortriptyline (TCA) neg 0 - 1000 ng/ml Oxycodone neg 0 - 300 ng/ml Reason For Referral No Information Medications Medication SIG (Take, Route, Frequency, Duration) Notes Start Date End Date Status Metoprolol Succinate ER 50 MG Tablet Extended Release 24 Hour 1 tablet Orally Once a day A ctive buPROPion HCl ER (XL) 150 MG Tablet Extended Release 24 Hour 1 tablet in the morning Orally Once a day; Duration: 30 days 08/18/2025 Active Sertraline HCl 150 MG Capsule 1 tablet Orally Once a day A ctive Social History Tobacco Use: Social History Observation Description Date Details (start date - stop date) Never Smoker NA - NA Sex Assigned At : Social History Observation Description Sex Assigned At Male Social History Miscellaneous: Social Info Question Answer Notes Safety issues: Do you feel safe at home? Yes Are there any firearms in the house? No Social History Social Info Question Answer Notes Household: Marital Status: Number of Adults in household: 4 Level of Education: Professional Schools/Masters /PhD Household: Social Info Question Answer Notes Household Marital status: Number of adults in household: 4 Number of children in household: 0 Level of education: professional schools/Masters /PhD Drug/Alcohol: Social Info Question Answer Notes Drugs Have you used drugs other than those for medical reasons in the past 12 months? No AUDIT-C (Standard) Interpretation Negative Did you have a drink contain ing alcohol in the past year? Yes How often did you have six or more drinks on one occasion in the past year? Declined to specify (0 point) How many drinks did you have on a typical day when you were drinking in the past year? Declined to specify (0 point) How often did you have a drink containing alcohol in the past year? Declined to specify (0 point) Tobacco Use: Social Info Question Answer Notes Tobacco Control (Standard) Tobacco use: Nonsmoker Additional Details Category Social Info Options Details Miscellaneous: Occupation: works full-ti me Drug/Alcohol: Do you smoke marijuana? Den ies Do you drink alcohol? No Problems Problem Type SNOMED Code ICD Code Onset Dates Problem Status W/U Status Risk Notes Problem Generalized anxiety disorder (49973959) NANCY (generalized anxiety disorder) (F41.1) Active confirmed Problem Severe major depression, single episode, without psychotic features (68077404) Current severe episode of major depressive disorder without psychotic features without prior episode (F32.2) Active confirmed Vital Signs Heart Rate 87 /min 08/18/2025 Weight-kg 75.57 kg 08/18/2025 Weight 166.6 lbs 08/18/2025 Encounters Encounter Location Date Provider Diagnosis [facility] [address] [phone] 08/18/2025 Mark Clubb Current severe episode of major depressive disorder without psychotic features without prior episode F32.2 and NANCY (generalized anxiety disorder) F41.1 Assessments Encounter Date Diagnosis (ICD Code) Assessment Notes Treatment Notes Treatment Clinical Notes Section Notes 08/18/2025 NANCY (generalized anxiety disorder) (ICD-10 - F41.1) Assessment and plan reviewed with patient Call for problems with medication, side effects or need for dosage change Compliance issues reviewed Discussed the risks/benefits of this medication Discussed medication side effects Return if symptoms worsen Treatment options reviewed. discussed that it can take weeks to see full therapeutic effects of psychotropic medications. discussed when to seek emergency services. discussed crisis prevention hotline [phone]. 08/18/2025 Current severe episode of major depressive disorder without psychotic features without prior episode (ICD-10 - F32.2) 08/18/2025 Other Bupropion material was printed, Pluckemin material was printed 1. Major Depressive Disorder - Assessment: Patient presents with symptoms consistent with major depressive disorder, including depressed mood, feelings of worthlessness and guilt, fatigue, poor concentration, and passive suicidal ideation. Symptoms have worsened since his father's in April. Current treatment with sertraline 100mg daily for approximately 4 weeks has not provided significant relief. Patient reports a family history of depression in his father, who responded well to a combination of Wellbutrin and Abilify. Patient expresses reluctance to increase sertraline dose due to perceived lack of efficacy. - Plan: a. increase sertraline 150mg daily. b. Start Wellbutrin 150 mg daily - Discussed potential benefits, including improved motivation and energy - Informed patient about the need for 4-6 weeks to see improvement c. Provided patient education on lithium as a potential short-term intervention for rapid symptom relief - Discussed 7-day course option - Explained side effects, including those related to dehydration - Patient declined this option d. Provided printed information on bupropion and lithium 2. Anxiety - Assessment: Patient reports experiencing panic attacks and feeling on edge. These symptoms appear to have onset around the same time as the depressive symptoms. Patient acknowledges that his worry interferes with daily functioning and work responsibilities. - Plan: a. Monitor anxiety symptoms in conjunction with depression treatment b. Reassess need for specific anxiety interventions at follow-up appointment 3. Insomnia - Assessment: Patient reports variable sleep patterns, with some nights of difficulty sleeping and others with excessive sleep. This may be related to his depressive symptoms and potentially exacerbated by medication side effects. - Plan: a. Recommend taking Wellbutrin in the morning to minimize sleep disturbances b. Suggest low-dose melatonin at night to help regulate sleep cycle c. Encourage avoiding daytime naps to improve nighttime sleep 4. Alcohol Use (In Remission) - Assessment: Patient reports a history of alcohol use but is currently sober. - Plan: a. Encourage continued abstinence from alcohol b. Educate on potential interactions between alcohol and psychiatric medications, particularly the lowered seizure threshold with Wellbutrin 5. Suicidal Ideation Monitoring - Assessment: Patient reports passive suicidal thoughts, with the most recent occurrence yesterday. No current plan or intent for suicide. Feelings of guilt and worthlessness. Protective factors include being engaged in therapy and currently employed full-time. - Plan: a. Continue monitoring suicidal ideation b. Reassess safety at follow-up appointment c. discussed [facility] crisis hotline and when to seek emergency services. Plan Of Treatment No Information Insurance Providers Payer Name Payer Address Payer Phone Subscriber Number Group Number Insured Name Patient Relationship to Insured Coverage Start Date Coverage End Date [facility] [address] [place] [address] [id number] Sherman Saldivar Self - patient is the insured Medical (General) History Medical History History ICD Code abdominal aortic aneurysm: No atrial fibrillation: No chronic fatigue syndrome: No essential tremor: No hyperlipidemia: No hypertension: Yes Parkinson's disease: No restless leg syndrome: No stroke: No subdural hematoma: No type 1 diabetes mellitus: No type 2 diabetes mellitus: No vitamin B12 deficiency: No vitamin D deficiency: No Surgical History Surgery Date(Month/Year) [facility] 2019 Hospitalization History Reason Date(Month/Year) denied
[2025-09-02 16:57] LABS: Hematocrit 40.3 % (42.0-52.0); Hemoglobin 13.6 g/dL (14.0-18.0); Immature Granulocyte Percent A 0.3 % (0-0.5); Lymphocytes Absolute Auto 1.91 K/mm3 (0.9-3.2); Mean Corpuscular HGB Conc 33.7 g/dl (32-36); Mean Corpuscular Hemoglobin 31.1 pg (26-34); Mean Corpuscular Volume 92.2 fl (80-100); Nucleated Red Blood Cells Absolute Auto 0.000 K/mm3 (0.0-0.012); Nucleated Red Blood Cells Perc 0.0 % (0.0-0.2); Platelet Count Result 267 k/mm3 (150-375); Red Blood Count 4.37 M/mm3 (4.6-6.20); White Blood Count 7.8 K/mm3 (4.5-10.0)
--- NOTE | 2025-09-02 17:02 | ED_ITS ---
HPI - Chest Pain General Chief Complaint: Chest Pain Stated Complaint: SOB when laying down. CP today Time Seen by Provider: 09/02/25 16:26 History of Present Illness HPI narrative: Patient is reporting some shortness of breath when he lays down, and some intermittent chest pain. Started this morning, but has been coming and going for a few days, along with some palpitations, difficulty sleeping, tremors in his hands ongoing for months, he has changed his blood pressure medications several times thinking that is the culprit, from amlodipine to metoprolol, and then to valsartan, though he feels like his symptoms are better controlled on metoprolol. He does have stressors in his life including a lot of stress at work. Has been trying to follow-up with his doctor. Feeling fine currently. Both parents have history of CHF so he is concerned about this Related Data Home Medications ?Medication ?Instructions ?Recorded ?Confirmed ?Last Taken ?Type amlodipine 10 mg tablet 10 mg PO DAILY 03/19/20 06/03/20/20 05:30 History Allergies Allergy/AdvReac Type Severity Reaction Status Date / Time No Known Allergies Allergy Verified 09/02/25 17:16 Review of Systems 2 Review of Systems: All systems reviewed & are unremarkable except as noted in HPI and below PMFSH Past Medical History Medical History Hypertension Social History Social History (System 06/11/25 @ 16:20 by Ana Christianson) Social History: Caffeine- Smoking status: Never smoker Exam 2 Narrative: EXAMINATION OF ORGAN SYSTEMS/BODY AREAS: Constitutional: Vital signs per nursing GENERAL:[No acute distress, non-toxic appearing.] HEAD: Normal with no signs of head trauma. EYES: EOMI, conjunctiva normal ENT: Hearing grossly intact LUNGS: Nonlabored breathing. Clear to auscultation bilaterally HEART: [Regular rate and rhythm], normal equal pulses bilateral radial and DP pulses ABD: [Soft], [nontender to palpation] EXT: Normal range of motion SKIN: [No rashes or lesions.] NEURO: [Alert and oriented x 3. No gross focal sensory or strength deficits.] PSYCH: Normal affect Course Vital Signs Vital signs: Vital Signs Pulse Oximetry 100 09/02/25 16:24 Temperature 98.2 F 09/02/25 16:32 Pulse Rate 67 09/02/25 18:16 Respiratory Rate 15 09/02/25 18:16 Blood Pressure 144/88 H 09/02/25 18:16 Pulse Oximetry 98 09/02/25 18:16 Oxygen Delivery Room Air 09/02/25 16:30 MDM - Chest Pain MDM Narrative Medical decision making narrative: ED COURSE AND MEDICAL DECISION MAKIN-year-old male presenting with chest pain and shortness of breath, does have a lot of stress at work, has had similar symptoms for a while, thinks it might be changes shows to his blood pressure medications. EKG done in triage negative for acute ischemic changes. Cardiac workup is initiated. EKG: Performed in triage and interpreted by me. Normal sinus rhythm. Rate 63. Normal axis. MT normal. QRS duration normal. QTc normal. No pathologic Q waves. No ST segment elevation or depression to suggest acute ischemia. No RV strain pattern. Compared to prior EKG from May, appears similar. HEART score is 2 with no acute ischemic changes on EKG and negative troponin making ACS unlikely. Wells low risk with negative PERC making PE unlikely. Presentation not consistent with dissection or aneurysm without radiation of pain or pulse deficits. CXR negative for mediastinal widening. No abdominal pain or signs of sepsis that would be concerning for esophageal perforation or mediastinitis. No cardiomegaly or JVD to suggest pericardial effusion/tamponade. At this time, I suspect his symptoms may be stress related. On repeat evaluation just prior to discharge, the patient is no acute distress. He would like to go home at this time. I had a long discussion with the patient and with shared decision making, [he] is comfortable with outpatient management. [He] was given clear return instructions by myself in person as well as on discharge paperwork. Since he did very well with multiple long the past, I will write a prescription for this until he can follow up with his doctor. I did also provide information for a environmental technical officer for further evaluation. Lab Data 09/02/25 16:45 09/02/25 16:45 Labs: Lab Results 09/02/25 Range/Units 16:45 WBC 7.8 (4.5-10.0) K/mm3 RBC 4.37 L (4.6-6.20) M/mm3 Hgb 13.6 L (14.0-18.0) g/dL Hct 40.3 L (42.0-52.0) % MCV 92.2 (80-100) fl MCH 31.1 (26-34) pg MCHC 33.7 (32-36) g/dl RDW 11.7 (11.5-14.5) % Plt Count 267 (150-375) k/mm3 MPV 9.4 (7.4-10.4) fl Immature Gran % (Auto) 0.3 (0-0.5) % Neut % (Auto) 63.7 (45.5-73.1) % Lymph % (Auto) 24.5 (18.3-44.2) % [place] % (Auto) 9.8 H (2.6-8.5) % Eos % (Auto) 1.3 (0-4.4) % Baso % (Auto) 0.4 (0.2-1.2) % Lymph # (Auto) 1.91 (0.9-3.2) K/mm3 [place] # (Auto) 0.8 H (0.1-0.6) K/mm3 Eos # (Auto) 0.1 (0-0.3) K/mm3 Baso # (Auto) 0.0 (0.0-0.1) K/mm3 Abs Immat Gran (auto) 0.02 (0.00-0.031) K/mm3 Absolute Neuts (auto) 5.0 (1.3-6.7) K/mm3 Absolute Nucleated RBC 0.000 (0.0-0.012) K/mm3 Nucleated RBC % 0.0 (0.0-0.2) % Sodium 133 L (137-145) mmol/L Potassium 4.3 (3.4-5.0) mmol/L Chloride 103 (98-107) mmol/L Carbon Dioxide 26 (22-30) mmol/L Anion Gap 4 (4-12) mmol/L BUN 29 H D (9-20) mg/dL Creatinine 0.90 (0.7-1.3) mg/dL Estim Creat Clear Calc Not Reportable Estimated GFR > 60 (59 - ) Glucose 93 (65-110) mg/dL Calcium 9.3 (8.4-10.2) mg/dL Total Bilirubin 0.2 (0.2-1.3) mg/dL AST 26 (17-59) U/L ALT 26 (6-50) U/L Alkaline Phosphatase 61 (38-126) U/L Troponin I < 0.012 (0.000-0.034) ng/mL NT-Pro-B Natriuret Pep 143 H (19.9-100) pg/mL Total Protein 6.5 (6.3-8.2) g/dL Albumin 3.8 (3.5-5.1) g/dL Lipase 65 (23-300) U/L Discharge Plan Discharge Clinical Impression: Atypical chest pain Patient Disposition: Home Condition: Stable Instructions: Chest Pain (ED) Additional Instructions: Please follow up with your doctor or a environmental technical officer; you can always return for any further issues. Patient Language: Wallisian Prescriptions: New metoprolol succinate 50 mg tablet extended release 24 hr 50 mg PO DAILY Qty: 30 0RF No Action amlodipine 10 mg Tablet 10 mg PO DAILY Follow-up/Referrals: Obdulio,Gabriel Antonio MD [Primary Care Provider, Unknown] Josias Meyers MD [Physician, Cardiology] - 2 Days
[2025-09-02 17:07] LABS: Alanine Aminotransferase 26 U/L (6-50); Albumin Level 3.8 g/dL (3.5-5.1); Alkaline Phosphatase 61 U/L (38-126); Anion Gap 4 mmol/L (4-12); Aspartate Amino Transferase 26 U/L (17-59); Bilirubin,Total 0.2 mg/dL (0.2-1.3); Blood Urea Nitrogen 29 mg/dL (9-20); Calcium 9.3 mg/dL (8.4-10.2); Carbon Dioxide 26 mmol/L (22-30); Chloride 103 mmol/L (98-107); Estimated Glomerular Filt Rate > 60; Glucose 93 mg/dL (65-110); Lipase 65 U/L (23-300); Potassium 4.3 mmol/L (3.4-5.0); Sodium 133 mmol/L (137-145); Total Protein 6.5 g/dL (6.3-8.2)
[2025-09-02 17:15] LABS: Troponin I < 0.012 ng/mL (0.000-0.034)
[2025-09-02 17:17] LABS: NT Pro B Type Natriuretic Pept 143 pg/mL (19.9-100)
== END 2025-09-02 18:18 | disposition home or self-care (01) ==
PROVIDERS: Emergency Provider Emergency Medicine; PCP Family Medicine
DX: R07.89 Other chest pain (principal); I10 Essential (primary) hypertension; I45.10 Unspecified right bundle-branch block; R94.31 Abnormal electrocardiogram [ECG] [EKG]
CPT/HCPCS: 36415; 71046; 80053; 83690; 83880; 84484; 85025; 93005; 99284